=== PATIENT | female | born 1975 ===

== ENCOUNTER 2023-04-25 09:53 | Outpatient (REF) | payer MEDICAID, SELFPAY ==
[2023-04-25 14:46] LABS: MANUAL DIFF FLAG NO
[2023-04-25 14:57] LABS: Basophils Absolute Auto 0.1 X10*3/uL (0.0-0.2); Eosinophils Absolute Auto 0.1 X10*3/uL (0.0-0.4); Eosinophils Percent Auto 1.6 % (0-4); Hematocrit 42.6 % (37.0-47.0); Hemoglobin 13.4 g/dl (12.0-16.0); Imm Gran Abs Auto 0.01 X10*3/uL (0.00-0.03); Imm Gran Pct Auto 0.2 % (0.0-0.4); Lymphocytes Absolute Auto 1.8 X10*3/uL (1.2-4.9); Lymphocytes Percent Auto 35.4 % (20-40); Mean Corpuscular HGB Conc 31.5 g/dl (31.0-35.0); Mean Corpuscular Hemoglobin 29.6 pg (27.0-33.0); Mean Corpuscular Volume 94.2 fL (80.0-98.0); Mean Platelet Volume 11.1 fL (9.4-12.3); Monocytes Absolute Auto 0.4 X10*3/uL (0.1-1.2); Monocytes Percent Auto 8.5 % (2-11); Neutrophils Absolute Auto 2.7 x10*3/uL (2.0-8.3); Neutrophils Percent Auto 53.3 % (45-73); Platelet Count 246 X10*3/uL (160-400); Red Blood Count 4.52 X10*6/uL (4.20-5.50); Red Cell Distribution Width 12.6 % (11.0-16.0)
[2023-04-25 15:01] LABS: Estimated Average Glucose 91 mg/dL; Hemoglobin A1c % 4.8 % (<6.0)
[2023-04-25 15:27] LABS: Alanine Aminotransferase 22 U/L (0-31); Albumin Level 4.1 g/dL (3.5-5.0); Alkaline Phosphatase 51 U/L (39-117); Anion Gap 9 (12-20); Aspartate Amino Transferase 18 U/L (5-31); Bilirubin Total 1.5 mg/dL (0.0-1.0); Blood Urea Nitrogen 10 mg/dL (9-16); Calcium 8.8 mg/dL (8.4-10.2); Carbon Dioxide 29 mmol/L (22-29); Chloride 106 mmol/L (96-108); Cholesterol 182 mg/dL (<200); Estimated Glomerular Filt Rate > 60; Glucose Random 70 mg/dL (60-115); HDL Cholesterol 50 mg/dL (>40); LDL Cholesterol Calculated 115 mg/dL (<100); Potassium 3.7 mmol/L (3.3-5.1); Sodium 140 mmol/L (135-145); TSH reflex Free T4 2.24 uIU/mL (0.32-4.0); Total Protein 7.4 g/dL (6.5-8.0); Triglycerides 87 mg/dL (<150)
== END 2023-04-25 09:54 | disposition home or self-care (01) ==
LOC: HO.CHCLDS 09:53
PROVIDERS: PCP Internal Medicine; Visit Provider Internal Medicine
DX: R03.0 Elevated blood-pressure reading, without diagnosis of hypertension (principal); E03.9 Hypothyroidism, unspecified
CPT/HCPCS: 36415; 80053; 80061; 83036; 84443; 85025

== ENCOUNTER 2023-04-26 15:16 | Emergency (ER) | payer MEDICAID, SELFPAY ==
[2023-04-26 15:20] VITALS: BP 171/106; PULSE 90; RESP 18; TEMP 36.3; O2SAT 98; BMI 28.0
--- NOTE | 2023-04-26 15:20 | ED.GENADULT ---
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 She notes otherwise feeling okay. No hx of HTN no new medications stress or ingestions. Her doctor is aware and just ordered a BP cuff to measure her BP at home MD complaint: HTN Onset (ago): day(s) (2) Location: head Radiation: non-radiation Severity: mild Quality: dull Pain Consistency: intermittent Relieving factors: none Exacerbating factors: none Associated symptoms: other (felt a little short of breath yesterday) Treatments prior to arrival: none Related Data Allergies Allergy/AdvReac Type Severity Reaction Status Date / Time No Known Allergies Allergy Verified 04/26/23 15:26 Review of Systems Review of Systems: Constitutional : No Fever, No Chills, No Fatigue ENT/Mouth : No sore throat, No Rhinorrhea Eyes: No Eye Pain, No Swelling, No Redness Cardiovascular : No Chest Pain, No SOB, No Dyspnea on Exertion Respiratory : No Cough, No Sputum Gastrointestinal : No Nausea, No Vomiting, No Diarrhea, No abdominal Pain Genitourinary : No Dysuria, No Urinary Frequency, No Hematuria, Musculoskeletal : No joint pain, No Myalgias, No Joint Swelling Skin : No Skin Lesions, No rash Neuro : No Weakness, No Numbness, No Dizziness, positive Headache Psych : No Anxiety/Panic, No Depression Heme/Lymph: No Bruising, No Bleeding,No Lymphadenopathy Endocrine : No Polyuria, No Polydipsia All other systems reviewed and are negative PMFSH Past Medical History Attestation statement: The following information was validated with the patient. Source: old records reviewed Onset Date is defined in the Problem List Problems that require an onset date and time if occurred within 24 hrs of arrival to the ED Aortic Dissection and Rupture; Neurologic impairment; Cardiopulmonary Arrest; Endotracheal Intubation; Insertion or Replacement of Mechanical Circulatory Assist Device Medical History HTN (hypertension) Social History Social History Smoked in Last 30 Days: No Use of substances other than those prescribed or required for medical reasons: No Advance Directives: No Advance Directives Information Provided: No Patient : No Physical Exam ED Vital Signs: Vital Signs - 24 hr 04/26/23 15:20 04/26/23 20:07 Temperature 97.4 F 98.3 F Pulse Rate 90 79 Respiratory Rate 18 18 Blood Pressure 171/106 H 133/97 H Pulse Oximetry 98 99 Oxygen Delivery Method Room Air Room Air BMI result Body Mass Index 28.0 Appearance: Alert. Oriented X3. No acute distress. Eyes: Pupils equal, round and reactive to light. ENT: Pharynx normal. Neck: Normal inspection. Neck supple. CVS: Normal heart rate and rhythm. Pulses normal. Respiratory: No respiratory distress. Breath sounds normal. Abdomen: Soft and nontender. Skin: Skin warm and dry. Normal skin color. Normal skin turgor. Extremities: No lower extremity edema. No calf ttp Neuro: Oriented X 3. No motor deficit. No sensory deficit. Course Course Course Narrative: This is an RME: Additional HPI, ROS, PE not included below will be deferred to primary provider. Patient is a 47-year-old female who presents emergency department for evaluation of hypertension and dizziness. She reports 1.5 years with these symptoms since she moved here from [facility], was not previously on any medications. She saw a new doctor 2 days ago, she believes this was a primary care doctor, she was seeing them for her thyroid however she states that she states she was not given any antihypertensive prescription, just a prescription for a blood pressure cuff which she was not able to get from the pharmacy. She was visiting with her cousin today who checked her blood pressure and noted it to be 147/101 which prompted her visit here today. Plan: Labs, EKG, U/A Medical Decision Making Medical Decision Making MDM Narrative: 47 yo female with PMH of thyroid disease here with mild elevations in BP but no signs of end organ disease neuro intact, kidney function EKG and trop normal can continue to check her BP at home as planned and send home with precautions. Differential Diagnosis Differential Diagnoses: The differential diagnosis associated with the presentation includes HTN Admission/Observation Consideration of admission/observation: Escalation of care including admission/observation considered labs and BP stable has good outpatient follow up Lab Data MDM Lab Attestation statement: I reviewed the patient's lab results. 04/26/23 15:51 04/26/23 15:51 Labs: Lab Results 04/26/23 Range/Units 15:51 WBC 5.6 (4.8-10.8) X10*3/uL RBC 4.43 (4.20-5.50) X10*6/uL Hgb 13.2 (12.0-16.0) g/dl Hct 40.9 (37.0-47.0) % MCV 92.3 (80.0-98.0) fL MCH 29.8 (27.0-33.0) pg MCHC 32.3 (31.0-35.0) g/dl RDW 12.3 (11.0-16.0) % Plt Count 248 (160-400) X10*3/uL MPV 10.0 (9.4-12.3) fL Immature Gran % (Auto) 0.0 (0.0-0.4) % Neut % (Auto) 54.2 (45-73) % Lymph % (Auto) 33.9 (20-40) % [place] % (Auto) 7.8 (2-11) % Eos % (Auto) 3.0 (0-4) % Baso % (Auto) 1.1 (0-2) % Lymph # (Auto) 1.9 (1.2-4.9) X10*3/uL [place] # (Auto) 0.4 (0.1-1.2) X10*3/uL Eos # (Auto) 0.2 (0.0-0.4) X10*3/uL Baso # (Auto) 0.1 (0.0-0.2) X10*3/uL Abs Immat Gran (auto) 0.00 (0.00-0.03) X10*3/uL Absolute Neuts (auto) 3.1 (2.0-8.3) x10*3/uL Absolute Nucleated RBC 0.000 (0.0-0.012) X10*3/uL Nucleated RBC % (auto) 0.0 (0.0-0.2) /100WBC Sodium 141 (135-145) mmol/L Potassium 3.4 (3.3-5.1) mmol/L Chloride 103 (96-108) mmol/L Carbon Dioxide 31 H (22-29) mmol/L Anion Gap 10 L (12-20) BUN 12 (9-16) mg/dL Creatinine 0.64 (0.5-1.4) mg/dL Estim Creat Clear Calc 97.0 Estimated GFR > 60 Random Glucose 67 (60-115) mg/dL Calcium 9.8 D (8.4-10.2) mg/dL Total Bilirubin 0.9 (0.0-1.0) mg/dL AST 17 (5-31) U/L ALT 20 (0-31) U/L Alkaline Phosphatase 71 (39-117) U/L Troponin I High Sens < 2.7 (<3.5-17.0) ng/L Total Protein 7.7 (6.5-8.0) g/dL Albumin 4.1 (3.5-5.0) g/dL Independent Interpretation I performed an independent interpretation of an: EKG Interpretation: Rate: 76 Rhythm: NSR [place]: normal Normal P waves. Normal LALI. Normal QRS complex. ST T wave : normal no YEMI qTC: 441 prior studies: no acute ischemia The study has been interpreted contemporaneously by me. . Discharge Plan Discharge Clinical Impression: HTN (hypertension) Qualifiers: Hypertension type: unspecified Qualified Code(s): I10 - Essential (primary) hypertension Patient Disposition: Home, Self-Care Instructions: Hypertension (ED), DASH Eating Plan (ED) Additional Instructions: continue to monitor your blood pressure. if you symptoms worsen and blood pressure remains 150/100 seek medical care. rest and stay hydrated. follow up with your doctor about your thyroid. Contin?e controlando langley presi?n arterial. Si delano s?ntomas empeoran y la presi?n arterial se mantiene en 150/100 busque atenci?n m?dica. Descanse y mant?ngase hidratado. Rama un seguimiento con langley m?dico acerca de langley tiroides. Print Language: Czech
--- NOTE | 2023-04-26 15:26 | ECG_ITS ---
Test Reason : HTN Blood Pressure : / mmHG Vent. Rate : 076 BPM Atrial Rate : 076 BPM P-R Int : 150 ms QRS Dur : 078 ms QT Int : 392 ms P-R-T Axes : 054 035 037 degrees QTc Int : 441 ms Normal sinus rhythm Possible Left atrial enlargement Borderline ECG No previous ECGs available Referred By: Shara Connolly Electronically Signed By:ARA PATEL MD
[2023-04-26 15:55] LABS: MANUAL DIFF FLAG NO
[2023-04-26 15:58] LABS: Basophils Absolute Auto 0.1 X10*3/uL (0.0-0.2); Basophils Percent Auto 1.1 % (0-2); Eosinophils Absolute Auto 0.2 X10*3/uL (0.0-0.4); Hematocrit 40.9 % (37.0-47.0); Hemoglobin 13.2 g/dl (12.0-16.0); Lymphocytes Absolute Auto 1.9 X10*3/uL (1.2-4.9); Lymphocytes Percent Auto 33.9 % (20-40); Mean Corpuscular HGB Conc 32.3 g/dl (31.0-35.0); Mean Corpuscular Hemoglobin 29.8 pg (27.0-33.0); Mean Corpuscular Volume 92.3 fL (80.0-98.0); Monocytes Absolute Auto 0.4 X10*3/uL (0.1-1.2); Monocytes Percent Auto 7.8 % (2-11); Neutrophils Absolute Auto 3.1 x10*3/uL (2.0-8.3); Neutrophils Percent Auto 54.2 % (45-73); Platelet Count 248 X10*3/uL (160-400); Red Blood Count 4.43 X10*6/uL (4.20-5.50); Red Cell Distribution Width 12.3 % (11.0-16.0); White Blood Count 5.6 X10*3/uL (4.8-10.8)
[2023-04-26 16:12] LABS: Alanine Aminotransferase 20 U/L (0-31); Albumin Level 4.1 g/dL (3.5-5.0); Alkaline Phosphatase 71 U/L (39-117); Anion Gap 10 (12-20); Aspartate Amino Transferase 17 U/L (5-31); Bilirubin Total 0.9 mg/dL (0.0-1.0); Blood Urea Nitrogen 12 mg/dL (9-16); Calcium 9.8 mg/dL (8.4-10.2); Carbon Dioxide 31 mmol/L (22-29); Chloride 103 mmol/L (96-108); Estimated Glomerular Filt Rate > 60; Glucose Random 67 mg/dL (60-115); Potassium 3.4 mmol/L (3.3-5.1); Sodium 141 mmol/L (135-145); Total Protein 7.7 g/dL (6.5-8.0)
[2023-04-26 16:24] LABS: Troponin-I High Sensitivity < 2.7 ng/L (<3.5-17.0)
[2023-04-26 20:07] VITALS: BP 133/97; PULSE 79; RESP 18; TEMP 36.8; O2SAT 99
--- NOTE | 2023-04-26 21:37 | PC.NURSE ---
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 pt calm and cooperative. pt ambulatory at discharge. pt provided with discharge packet pt verbalized understanding of discharge plan. pt spouse and child at bedside at discharge
== END 2023-04-26 21:38 | disposition home or self-care (01) ==
PROVIDERS: Nurse Practitioner Family; Emergency Provider Emergency Medicine; PCP Internal Medicine
DX: R51.9 Headache, unspecified (principal); I10 Essential (primary) hypertension; R94.31 Abnormal electrocardiogram [ECG] [EKG]; Z79.899 Other long term (current) drug therapy
CPT/HCPCS: 36415; 80053; 84484; 85025; 93005; 99283; 99284

== ENCOUNTER → 2023-04-26 15:26 | Outpatient (BNV) | payer MEDICAID, SELFPAY | PROVIDERS: Emergency Provider Emergency Medicine; PCP Internal Medicine; Visit Provider Internal Medicine Cardiovascular Disease | DX: I10 Essential (primary) hypertension (principal) | CPT/HCPCS: 93010 ==

== ENCOUNTER 2023-05-20 16:30 | Outpatient (REF) | payer MEDICAID, SELFPAY ==
--- NOTE | ~2023-05-20 | MM_ITS ---
EXAMINATION: MM SCREENING DIGITAL BREAST TOMOSYNTHESIS, BILATERAL CLINICAL INFORMATION: Screening. Asymptomatic. COMPARISON: Mammography: There are no prior mammograms for comparison. This is a baseline mammogram. TECHNIQUE: Digital breast tomosynthesis is performed in both the craniocaudal and mediolateral oblique views along with computer-aided detection (CAD). Synthesized 2D images are generated from the tomosynthesis. FINDINGS: The breasts are heterogeneously dense, which may obscure small masses (ACR BI-RADS breast composition Category c). There are no significant masses, abnormal calcifications, or other abnormalities. MM/MM tomosynthesis screening BI IMPRESSION: No mammographic evidence of malignancy. ASSESSMENT: BI-RADS BI-RADS 1 - Negative RECOMMENDATION: Routine annual mammography screening. 1 year F/U This examination should not preclude the clinical evaluation of a suspicious palpable abnormality. This patient's information was entered into a reminder system with a target due date for their next mammogram.
== END 2023-05-20 16:31 | disposition home or self-care (01) ==
LOC: HO.MAMMO 16:30
PROVIDERS: PCP Internal Medicine; Visit Provider Internal Medicine
DX: Z12.31 Encounter for screening mammogram for malignant neoplasm of breast (principal)
CPT/HCPCS: 77063; 77067

== ENCOUNTER → 2023-05-20 16:30 | Outpatient (BNV) | payer MEDICAID, SELFPAY | PROVIDERS: PCP Internal Medicine; Visit Provider Radiology Diagnostic Radiology | DX: Z12.31 Encounter for screening mammogram for malignant neoplasm of breast (principal) | CPT/HCPCS: 77063; 77067 ==

== ENCOUNTER 2023-08-20 14:50 | Outpatient (REF) | payer MEDICAID, OTHER, SELFPAY ==
[2023-08-23 00:04] LABS: C. trachomatis RNA TMA NOT DETECTED (NOT DETECTED); N. gonorrhoeae RNA TMA NOT DETECTED (NOT DETECTED); Trichomonas (NAAT) NOT DETECTED (NOT DETECTED)
[2023-08-23 01:54] LABS: HPV mRNA E6/E7 rflx Not Detected (Not Detected)
== END 2023-08-20 14:51 | disposition home or self-care (01) ==
LOC: HO.HHCLNP 14:50
PROVIDERS: Visit Provider Advanced Practice Midwife
DX: Z12.4 Encounter for screening for malignant neoplasm of cervix (principal); Z11.51 Encounter for screening for human papillomavirus (HPV); Z11.3 Encounter for screening for infections with a predominantly sexual mode of transmission
CPT/HCPCS: 36415; 87491; 87591; 87624; 87661; 88142

== ENCOUNTER 2024-01-18 12:31 | Emergency (ER) | payer MEDICAID, OTHER, SELFPAY ==
--- NOTE | ~2024-01-18 | XR_ITS ---
EXAMINATION: XR HAND, LEFT CLINICAL INFORMATION: Index and middle finger pain COMPARISON: None available. TECHNIQUE: PA, lateral, and oblique views of the left hand. FINDINGS: Overlying ring of the third digit limits evaluation. No acute fracture. There is soft tissue swelling of the third digit. No fracture. Alignment is anatomic. Joint spaces are maintained. No erosions or soft tissue calcifications. XR/XR hand LT min 3V IMPRESSION: Soft tissue swelling of the third digit. Electronically signed by: Ximena Duenas MD 01/18/2024 02:05 PM EDT RP
[2024-01-18 12:33] VITALS: BP 143/94; PULSE 89; RESP 18; TEMP 36.2; O2SAT 98; BMI 24.4
--- NOTE | 2024-01-18 12:34 | ED.GENADULT ---
HPI - General Adult General Chief complaint: Wound/Laceration Stated complaint: Finger lac Time Seen by Provider: 01/18/24 12:55 Source: patient, family and lead medical technologist Mode of arrival: ambulatory Limitations: language barrier History of Present Illness ED Provider: Mignon Garcia APRN HPI narrative: 48 yo female right hand dominant here with complaints of laceration to left 2nd/3rd digit from electric window trimmer. Tetanus status unknown. No associated weakness, numbness, tingling of the extremity Related Data Previous Rx's ?Medication ?Instructions ?Recorded acetaminophen 325 mg tablet 650 mg (2 x 325 mg) PO Q4H PRN 01/18/24 (Tylenol) pain #30 tabs cephalexin 500 mg capsule 500 mg PO BID #14 caps 01/18/24 ibuprofen 600 mg tablet 600 mg PO Q6H PRN pain #30 tabs 01/18/24 Allergies Allergy/AdvReac Type Severity Reaction Status Date / Time No Known Allergies Allergy Verified 01/18/24 12:36 Review of Systems Review of Systems: Yes all other systems are reviewed and are negative Constitutional: Constitutional: Reports no additional constitutional complaints, Denies body ache(s), Denies chills, Denies fever(s), Denies headache(s) and Denies weakness Eyes: Eyes: Reports no additional eye complaints and Denies change in vision ENT: Reports system reviewed and no additional complaints, except as documented, Denies dizziness, Denies headache(s), Denies nasal congestion, Denies nasal discharge and Denies neck pain Cardiovascular: Cardiovascular: Reports no additional cardiovascular complaints, Denies chest pain, Denies leg edema and Denies dyspnea Respiratory: Respiratory: Reports no additional respiratory complaints, Denies cough and Denies dyspnea Gastrointestinal: Gastrointestinal: Reports no additional gastrointestinal complaints, Denies abdominal pain, Denies diarrhea, Denies nausea and Denies vomiting Genitourinary: Genitourinary: Reports no additional female genitourinary complaints and Denies urinary incontinence Musculoskeletal: Musculoskeletal: Reports no additional musculoskeletal complaints, Denies back pain, Denies arthralgias, Denies joint swelling, Denies neck pain, Denies numbness and Denies tingling Integumentary/Breasts: Skin/Breast: Reports system reviewed and no additional complaints, except as docu, Denies rash and Reports wounds Neurologic: Reports system reviewed and no additional complaints, except as documented, Denies Abnormal speech present, Denies dizziness, Denies headache(s), Denies numbness, Denies tingling and Denies weakness PMFSH Past Medical History Attestation statement: The following information was validated with the patient. Source: old records reviewed and nursing notes reviewed Medical History HTN (hypertension) Social History Social History Advance Directives: No Do you have a plan to hurt others: No Plan Physical Exam ED Vital Signs: Vital Signs - 24 hr 01/18/24 12:33 Temperature 97.2 F Pulse Rate 89 Respiratory Rate 18 Blood Pressure 143/94 H Pulse Oximetry 98 Oxygen Delivery Method Room Air BMI result Body Mass Index 24.4 Const General: cooperative, healthy appearing, comfortable and no acute distress Orientation/consciousness: patient oriented x3 Limitations: no limitations HENMT Head: Yes normal to inspection Ears: hearing grossly normal bilaterally General nose exam: Normal external nose present Face and sinus: Yes normal facial exam Mouth: Normal oral and palatal mucosa present Throat: Yes posterior oropharynx normal Eyes General: appearance normal, both eyes and all related structures Pupils: Equal, round and reactive pupils present Neck Neck: Yes normal visual inspection Chest Chest palpation & inspection: normal inspection of the chest Resp Effort & Inspection: normal respiratory effort Auscultation: clear to auscultation bilaterally Cardio Rate: regular rate Rhythm: regular rhythm Peripheral pulses: Peripheral pulses 2+ throughout GI Inspection: Yes normal to inspection Palpation (GI): Soft to palpation and nontender Auscultation: normal bowel sounds Back/Spine/Pelvis Thoracic/Lumbar Spine: thoracic and lumbar spine normal to inspection Skin General skin exam: no rashes or lesions noted Neuro General: patient oriented x3, no focal motor deficits and normal sensation to monofilament Cranial nerves: Yes Equal, round and reactive pupils present Cognition (Neuro): normal cognition Speech: No Abnormal speech present Gait exam (Neuro): Normal gait present Motor exam (neuro): 5/5 motor strength present throughout Extrem Other: Over the left hand over the 3rd digit on the distal volar aspect there is a 1 cm laceration. Full active and passive range of motion. Normal distal sensation. Bleeding is controlled Over the left hand over the 2nd digit on the distal volar aspect there is a 2 cm laceration. Full active and passive range of motion. Normal distal sensation. Bleeding is controlled General: Yes normal to inspection Course Course Course Narrative: RME performed by Anna Rivera PA-C. Patient is a 48 year old assigned female at presenting to the emergency department with a left index and middle finger injury. Patient states she was using electric hedge trimmers when she got cut. Detailed physical exam and review of systems are deferred to the video tape duplicator. Imaging ordered. Patient placed back in the waiting room pending room availability and results. Medications Administered Discontinued Medications Generic Name Dose Route Start Last Admin Trade Name Freq PRN Reason Stop Dose Admin Diphtheria/Tetanus/Acell Pertussis 0.5 ml 01/18/24 12:39 01/18/24 13:12 Diphth,Pertus(Acell),Tet Adult 0.5 Ml Syringe IM 01/18/24 12:40 0.5 ml .ONCE ONE Administration Lidocaine HCl 2 ml 01/18/24 13:19 01/18/24 13:40 Lidocaine Hcl 1 % Mpf 2 Ml Vial INFILTRATI 01/18/24 13:20 2 ml ONCE ONE Administration Lidocaine HCl 2 ml 01/18/24 13:19 01/18/24 13:40 Lidocaine Hcl 1 % Mpf 2 Ml Vial INFILTRATI 01/18/24 13:20 2 ml ONCE ONE Administration Procedures Laceration Laceration 1: Site: hand (2nd digit ) Side (If applicable): left Size (cm): 2 Description: irregular Pre-repair: wound explored and irrigated extensively (1L NS) Skin layer closed with: vicryl Size (cm): 5-0 Number of sutures: 5 Technique: simple, interrupted Laceration 2: Site: hand (3rd digit ) Side (If applicable): left Size (cm): 1 Description: irregular Depth: simple, single layer Pre-repair: wound explored and irrigated extensively (1L NS) Skin layer closed with: vicryl Size (cm): 5-0 Number of sutures: 3 Technique: simple, interrupted Nerve Block Nerve Block 1: Time out performed: Yes Local Anesthetic: lidocaine 1% Amount of anesthesia used (mL): 6 Side: left Nerve Blocks: digital (2nd/3rd digit ) Procedure Successful: Yes Patient Tolerated Procedure: well Complications: none Medical Decision Making Medical Decision Making MDM Narrative: 48 yo female right hand dominant here with complaints of laceration to left 2nd/3rd digit from electric window trimmer. Tetanus status unknown. No associated weakness, numbness, tingling of the extremity See PE for exam findings WIll need x-ray, tetanus updated, digital block and wound repair Differential Diagnosis Differential Diagnoses: The differential diagnosis associated with the presentation includes Laceration, Fracture, avulsion, retained FB Low suspicion for tendon injury, dislocation, vascular injury Admission/Observation Consideration of admission/observation: Escalation of care including admission/observation considered Low suspicion for tendon injury, dislocation, vascular injury requiring advanced imaging, urgent orthopedic consultation Independent Interpretation I performed an independent interpretation of an: Plain X-Ray Interpretation: I independently viewed the x-ray and agree with the radiology report Radiology Impression Discussion of test interpretation with radiology: I have reviewed the radiologist's reading. Radiologist Impression: [address] [address] XRay Report Signed Patient: Alicia Workman MR#: [id number] : 1975 Acct:[id number] Age/Sex: 48 / F ADM Date: 01/18/24 Loc: HO.ED Attending Dr: Ordering Physician: Anna Rivera Date of Service: 01/18/24 Procedure(s): XR hand LT min 3V Accession Number(s): [id number] cc: Kan Tijerina MD; Anna Rivera~ EXAMINATION: XR HAND, LEFT CLINICAL INFORMATION: Index and middle finger pain COMPARISON: None available. TECHNIQUE: PA, lateral, and oblique views of the left hand. FINDINGS: Overlying ring of the third digit limits evaluation. No acute fracture. There is soft tissue swelling of the third digit. No fracture. Alignment is anatomic. Joint spaces are maintained. No erosions or soft tissue calcifications. XR/XR hand LT min 3V IMPRESSION: Soft tissue swelling of the third digit. Independent Historian Clinical information obtained from an independent historian. History obtained from or confirmed by: Spouse Tests considered The following testing was considered but not selected: Low suspicion for tendon injury, dislocation, vascular injury requiring advanced imaging Prescription Management I considered prescription management with: Antibiotic Discharge Plan Discharge Clinical Impression: Laceration Patient Disposition: Home, Self-Care Instructions: Finger Laceration (ED) Additional Instructions: Sutures out in 7-10 days Keep the wound clean, covered and dry Motrin or tylenol for pain as needed Return for signs of infection (redness, swelling, drainage) Leave the dressing in place, after 24 hrs you may remove it. Wash it with soap and water, pat dry and re-apply a dressing Prescriptions: New cephalexin 500 mg capsule 500 mg PO BID Qty: 14 0RF ibuprofen 600 mg tablet 600 mg PO Q6H PRN (Reason: pain) Qty: 30 0RF acetaminophen [Tylenol] 325 mg tablet 650 mg PO Q4H PRN (Reason: pain) Qty: 30 0RF Referrals: Kan Tijerina MD [Primary Care Provider] - 1 week Print Language: Italian
[2024-01-18] MEDS: Diphth,Pertus(ACell),Tet Adult 0.5 ML SYRINGE IM (13:12)
--- NOTE | 2024-01-18 13:15 | PC.NURSE ---
pt medicated with updated tetanus, pt has c/o 5/10 pain. provider at bedside
[2024-01-18] MEDS: Lidocaine HCl 1 % MPF 2 ML VIAL INFILTRATI ×4 (13:40→14:21)
[2024-01-18 14:25] VITALS: BP 131/78; PULSE 82; RESP 18; TEMP 36.7; O2SAT 98
== END 2024-01-18 14:26 | disposition home or self-care (01) ==
PROVIDERS: Emergency Provider Internal Medicine; PCP Internal Medicine
DX: S61.211A Laceration without foreign body of left index finger without damage to nail, initial encounter (principal); S61.213A Laceration without foreign body of left middle finger without damage to nail, initial encounter; W29.3XXA Contact with powered garden and outdoor hand tools and machinery, initial encounter; Y93.H2 Activity, gardening and landscaping; Y92.017 Garden or yard in single-family (private) house as the place of occurrence of the external cause; Y99.9 Unspecified external cause status; Z23 Encounter for immunization
CPT/HCPCS: 12002; 73130; 90471; 90715; 99282; 99284; J2003

== ENCOUNTER 2024-05-13 16:33 | Outpatient (REF) | payer MEDICAID, OTHER, SELFPAY ==
--- NOTE | ~2024-05-13 | US_ITS ---
CLINICAL HISTORY: fibroids, 6 month f u US pelvis transabdominal and transvaginal with Doppler Comparison: None Findings: Transabdominal scanning performed for overall anatomy. Transvaginal scanning performed for additional detail. Uterus is 13 cm length. Multiple uterine fibroids: 4.8 x 4.5 x 4.4 cm on the right, 3.2 x 2.1 x 2.7 cm on the right and 2.7 x 2.5 x 2.5 cm posteriorly No endometrial lesion, 8.0 mm thickness. Right ovary 3.4 x 1.5 x 2 cm. Left ovary is not seen. Normal color Doppler with arterial/venous spectral tracing of right ovary. No free fluid. IMPRESSION: Multiple uterine fibroids. This document has been electronically signed by: Amaya Hubbard MD on 05/13/2024 17:21:49
== END 2024-05-13 16:34 | disposition home or self-care (01) ==
LOC: HO.US 16:33
PROVIDERS: PCP Internal Medicine; Visit Provider Advanced Practice Midwife
DX: D21.9 Benign neoplasm of connective and other soft tissue, unspecified (principal)
CPT/HCPCS: 76830; 76856

== ENCOUNTER → 2024-05-13 16:44 | Outpatient (BNV) | payer SELFPAY | PROVIDERS: PCP Internal Medicine; Visit Provider Nuclear Medicine | DX: D25.9 Leiomyoma of uterus, unspecified (principal) | CPT/HCPCS: 76830; 76856 ==

== ENCOUNTER 2024-08-19 09:49 | Outpatient (REF) | payer SELFPAY ==
--- OUTSIDE RECORDS SUMMARY | 2024-08-19 10:45 | XMS_ITS | Encounter Summary ---
Author Organization [employer] Address [address] [place] [address] Care Team Providers Care Snuff Grinder And Screener Name Role Phone Kan Tijerina MD Primary Care Prov ider Reason for Visit * Reason Onset Date Comments Appointment Request 11/05/2023 Encounter Details Date Type Department Care Team ([facility] st Contact Info) Description 11/05/2023 Telephone [facility] MEDICINE [address] [place] [address] Kan Tijerina MD [address] [place] [address] Appointment Request Social History Tobacco Use Types Packs/Day Years Used Date Smoking Tobacco: Never Passive Smoke Exposure: Never Smokeless Tobacco: Never Alcohol Use Standard Drinks/Week Comments Never 0 (1 standard drink = 0.6 oz pur e alcohol) Depression Answer Date Recorded Patient Health Questionnaire-9 Score 0 05/27/2023 Patient Health Questionnaire-9 Score 0 05/27/2023 Last PHQ-9: Questionnaire Data Not on file 0 05/27/2023 Housing Stability Answer Date Recorded What is your housing situation today? I have [employer] 05/20/[address] you li ve. Do you have problems with any of the following? None of the above 05/20/2023 Food Insecurity Answer Date Recorded Within the past 12 months, y ou worried that your food would run out before you got money to buy more: Never True 05/20/2023 Within the past 12 months,th e food you bought just didn't last and you didn't have enough money to get more: Never True 08/2023 Transportation Answer Date Recorded In the past 12 months, has l ack of transportation kept you from medical appts, meetings, work or from getting things needed for daily living? No 05/27/2023 Utilities Answer Date Recorded In the past 12 months, has t he electric, gas, oil or water company threatened to shut off services in your home? 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 documented in this encounter Plan of Treatment Upcoming Encounters Date Type Department Care Team (Late st Contact Info) Description 09/08/2024 2:30 PM EDT Telemedicine [facility] [address] [place] [address] Kan Tijerina MD [address] [place] [address] documented as of this encounter Visit Diagnoses Not on filedocumented in this encounter Additional Health Concerns Assessment Noted Time PHQ-9 Depression Total Score: 0 05/27/19 9:56 AM EST documented as of this encounter Care Teams Snuff Grinder And Screener Relationship Specialty Start Date End Date Kan Tijerina MD [address] [place] [address] PCP - General Internal Medicine 05/27/23 documented as of this encounter
--- OUTSIDE RECORDS SUMMARY | 2024-08-19 10:45 | XMS_ITS | Encounter Summary ---
Author Organization [employer] Address [address] [place] [address] Care Team Providers Care Auxiliary Power Equipment Operator Name Role Phone Kan Tijerina MD Primary Care Prov ider Encounter Details Date Type Department Care Team (Latest Contact Info) Description 08/19/2024 Travel Social History Tobacco Use Types Packs/Day Years Used Date Smoking Tobacco: Never Passive Smoke Exposure: Never Smokeless Tobacco: Never Alcohol Use Standard Drinks/Week Comments Never 0 (1 standard drink = 0.6 oz pur e alcohol) Depression Answer Date Recorded Patient Health Questionnaire-9 Score 3 08/04/2024 Patient Health Questionnaire-9 Score 3 08/04/2024 Last PHQ-9: Questionnaire Data Not on file 0 08/04/2024 Housing Stability Answer Date Recorded What is your housing situation today? I have [employer] 07/24/[address] you li ve. Do you have problems with any of the following? None of the above 07/24/2024 Food Insecurity Answer Date Recorded Within the past 12 months, y ou worried that your food would run out before you got money to buy more: Never True 07/24/2024 Within the past 12 months,th e food you bought just didn't last and you didn't have enough money to get more: Never True 02/2025 Transportation Answer Date Recorded In the past 12 months, has l ack of transportation kept you from medical appts, meetings, work or from getting things needed for daily living? Yes, it has kept me from medical appointments or getting medications. 07/24/2024 Utilities Answer Date Recorded In the past 12 months, has t he electric, gas, oil or water company threatened to shut off services in your home? No 07/24/2024 Depression Answer Date Recorded Patient Health Questionnaire-2 Score 1 08/04/2024 Internet Access Answer Date Recorded Internet Access Q1 Yes 07/24/2024 Internet Access Q2 Not on file 07/24/2024 Comments No Sex and Gender Information Value Date Recorded Sex Assigned at Female 04/24/2023 5:19 PM EST Legal Sex Female 10:47 AM EST Gender Identity Female 04/24/2023 5:19 PM EST Sexual Orientation Straight 04/24/2023 5: 19 PM EST documented as of this encounter Plan of Treatment Upcoming Encounters Date Type Department Care Team (Late st Contact Info) Description 09/08/2024 2:30 PM EDT Telemedicine [facility] [address] [place] [address] Kan Tijerina MD [address] [place] [address] documented as of this encounter Visit Diagnoses Not on filedocumented in this encounter Additional Health Concerns Assessment Noted Time PHQ-9 Depression Total Score: 3 08/05/19 25 2:01 PM EDT documented as of this encounter Care Teams Auxiliary Power Equipment Operator Relationship Specialty Start Date End Date Kan Tijerina MD [address] [place] [address] PCP - General Internal Medicine 05/27/23 documented as of this encounter
--- OUTSIDE RECORDS SUMMARY | 2024-08-19 10:45 | XMS_ITS | Clinical Summary ---
Author Organization [employer] Address [address] [place] [address] Care Team Providers Care Database Reporting Consultant Name Role Phone Kan Tijerina MD Primary Care Prov ider Allergies No known active allergies Medications Blood Pressure Monitor kitIndications:El evated BP without diagnosis of hypertension Use to monitor blood pressure 1 kit 4 Active ulipristal (Olga) 30 mg tablet Take one tablet by mouth up to five days after sex. Do not use more than once per menstrual cycle. If repeat dose is needed in same cycle, please contact prescriber. 1 tablet 11 4 Active mometasone (Elocon) 0.1 % ointment Apply topically 2 times daily. Apply twice daily to area under breasts 45 g 1 4 11/20/19 25 Active hydroquinone 4 % cream Apply topically 2 times daily. Apply to affected area of face twice daily. 30 g 1 4 11/20/19 25 Active Active Problems Problem Noted Date Diagnosed Date Intramural, submucous, and subserous leiomyoma o f uterus 01/28/2024 Assessment & Plan (01/28/2024 10:44 AM EDT): Will refer to ob-snowboard designer, refers having mild pain and pressure, no menorrhagia reported Primary hypertension 05/28/2023 Assessment & Plan (10/30/2023 12:13 PM EDT): Blood pressure has remained stable, below 140/90, she is exercising, continue low sodium diet and weight loss Assessment & Plan (07/24/2023 7:48 PM EDT): Controlled, off medications, continue low sodium diet and exercise as tolerated Assessment & Plan (05/28/2023 12:27 PM EST): Patient with elevated blood pressure results, she prefers to follow diet reccomendations, will follow up in 1 month with bp log and will decide if bp control medication will be started Screening for colon cancer 04/24/2023 Assessment & Plan (04/24/2023 7:25 PM EST): Will refer to Gi for screening colon cancer Screening for cervical cancer 04/24/2023 Assessment & Plan (04/24/2023 7:26 PM EST): Patient prefers a female provide, will place refera Encounter for screening mamm ogram for malignant neoplasm of breast 04/24/2023 Assessment & Plan (04/24/2023 7:26 PM EST): Will order screening mammogram Elevated BP without diagnosis of hypertension Assessment & Plan (08/04/2024 8:26 PM EDT): Elevated bp reading, at home has remained stable, told to keep a daily bp log, keep low sodium diet and exercise as tolerated, follow up in 1 month Assessment & Plan (01/28/2024 10:33 AM EDT): Controlled, continue low sodium diet, exercise as tolerated, weigth loss encouraged, keep bp log, follow up in 6 months Assessment & Plan (04/24/2023 7:36 PM EST): Will provide bp kit, encouraged low sodium diet and exercise as tolerated, follow up in 1 month Acquired hypothyroidism 04/24/2023 Assessment & Plan (10/30/2023 12:13 PM EDT): Will order new labs for guidance, she is clinically euthyroid Assessment & Plan (05/28/2023 12:28 PM EST): Has been off treatment for over 5 months, tsh was within normal limits, no oral replacement needed, will monitor Assessment & Plan (04/24/2023 7:40 PM EST): Patient has been off levothyroxine for over 6 months, she used to be taking 50mcg during the weekday and 88mcg on weekends, will order new labs for guidance of therapy Encounters Date Type Department Care Team Description 08/19/2024 9:00 AM EDT Procedure Visit [facility] [address] [place] [id number] Eliana Baum CNM 08/19/2024 Travel 08/18/[address] [address] Eliana Baum CNM CHART PREP 08/04/2024 1:45 PM EDT Office Visit [facility] [address] [place] [address] Kan Tijerina MD Acquired hypothyroidism (Primary Dx); Elevated BP without diagnosis of hypertension 08/04/2024 Travel 07/24/2024 Patient Outreach [address] [address] Ketty Deshpande Pre-visit Planning (SDOH screening positive and Tobacco screening negative) 06/17/2024 Travel from Last 3 Months Immunizations Name Administration Dates Next Due Hep B, adult 07/24/2023 Influenza injectable quadrivalent preservative f ree 07/24/2023 Tdap 07/24/2023 Family History Medical History Relation Name Comments Alzheimer's disease Father Dementia Mother Hypertension Mother Stomach cancer Mother's Sister Relation Name Status Comments Father Mother Mother's Sister Social History Tobacco Use Types Packs/Day Years Used Date Smoking Tobacco: Never Passive Smoke Exposure: Never Smokeless Tobacco: Never Tobacco Cessation:Counseling Given: Not Answered Alcohol Use Standard Drinks/Week Comments Never 0 [...] Orientation Straight 04/24/2023 5: 19 PM EST Last Filed Vital Signs Vital Sign Reading Time Taken Comments Blood Pressure 156/99 08/19/2024 9:11 AM EDT Pulse 84 08/04/2024 2:00 PM EDT Temperature 36.2 ??C (97.2 ??F) 08/19/2024 9:11 AM ED T Respiratory Rate 16 08/19/2024 9:11 AM EDT Oxygen Saturation 98% 08/04/2024 2:00 PM EDT Inhaled Oxygen Concentration - - Weight 61.7 kg (136 lb) 08/19/2024 9:11 AM EDT Height 157.5 cm (5' 2 ) 08/19/2024 9:11 AM EDT Body Mass Index 24.87 08/19/2024 9:11 AM EDT Plan of Treatment Upcoming Encounters Date Type Department Care Team (Late st Contact Info) Description 09/08/2024 2:30 PM EDT Telemedicine [facility] [address] [place] [address] Kan Tijerina MD [address] [place] [address] Health Maintenance Due Date Last Done Comments CT Colonography 1975 Colonoscopy 1975 Colorectal Cancer Screening 1975 FIT DNA/Cologuard 1975 FIT 1975 FOBT 1975 HIV Screening 1975 Sigmoidoscopy 1975 Hepatitis C Screening 1994 Hepatitis B Vaccines (2 of 3 - 19+ 3-dose series) 08/21/2023 07/24/2023 COVID-19 Vaccine (1 - 2023-2 5 season) 2023 Influenza Vaccine (#1) 2023 07/24/2023 Family Planning (PISQ) 08/19/2024 08/20/2023 Mammogram 05/20/2025 05/20/2023 SDOH Screening 07/24/2025 07/24/2024 Alcohol/Substance Use Screening 08/04/2025 08/04/2024 Depression Screening 08/04/2025 08/04/2024, 08/04/2024 Tobacco Screening 08/19/2025 08/19/2024 Zoster Vaccines (1 of 2) 2026 Lipid Panel 04/25/2028 04/25/2023 Cervical Cancer Screening 08/19/2028 HPV/Cotest 08/19/2028 08/21/2023 Pap Smear 08/19/2028 08/20/2023, 08/20/2023 DTaP/Tdap/Td Vaccines (3 - T d or Tdap) 01/17/2034 01/18/2024, 07/24/2023 RSV Patients and Patients Aged 60 years or older (1 - 1-dose 75+ series) 10/28/2051 HIB Vaccines Aged Out No longer eligi ble based on patient's age to complete this topic HPV Vaccines Aged Out No longer eligi ble based on patient's age to complete this topic Hepatitis A Vaccines Aged Out No long er eligible based on patient's age to complete this topic IPV Vaccines Aged Out No longer eligi ble based on patient's age to complete this topic Meningococcal Vaccine Aged Out No kailey ventura eligible based on patient's age to complete this topic Pneumococcal Vaccine: Pediatrics (0 to 5 Years) and At-Risk Patients (6 to 49) Years) Aged Out No longer eligible b ased on patient's age to complete this topic RSV under 20 months Aged Out No longe r eligible based on patient's age to complete this topic Rotavirus Vaccines Aged Out No longer eligible based on patient's age to complete this topic Procedures Procedure Name Priority Date/Time Associated Diagnosis Comments HPV MRNA E6/E7 REFLEX TO HPV 16, 18/45 Routine 08/21/2023 8:20 AM EDT IMAGE-GUIDED PAP W/AGE BASED SCR,W/CT/NG/TRICH Routine 08/20/2023 9:33 AM EDT Cervical cancer screening Encntr screen for infections w sexl mode of transmiss BI MAMMOGRAM SCREENING TOMOSYNTHESIS BILATERAL Routine 05/20/2023 4:47 PM EST LIPID PANEL, STANDARD Routine 04/25/2023 10:03 AM EST Elevated BP without diagnosis of hypertension from Last 3 Months or Most Recently Relevant to Health Maintenance Results * HPV mRNA E6/E7 w/Reflex to HPV Genotypes 16, 18/45 (08/21/2023 8:20 AM EDT) HPV nRNA E6/E7 Not Detected Not Detected [facility] Comment:Methodology: Transcr iption-Mediated AmplificationThis assay detects E6/E7 viral messenger RNA (mRNA) from 14high-risk HPV types (16,18,31,33,35,39,45,51,52,56,58,59,66,68).Cervical sources are required for HPV testing.If a vaginal source from a patient who has had atotal hysterectomy with removal of cervix wassubmitted, please contact the testing laboratoryfor alternative testing options.For additional information, please refer tohttp://education.[employer]BDSoft/faq/NHG996d0(This link if provided for information/educational purposes only.)THIS TEST WAS PERFORMED AT:[facility] [place] [phone] ARAMBULA MD HPV mRNA E6/E7 TNP [facility] HPV 16 RNA TNP [facility] HPV 18/45 RNA TNP [facility] 08/21/2023 8:20 AM EDT 08/21/2023 8:20 AM EDT Eliana Baum [facility] LAB CYTOLOGY ORDERABLES F inal Result [facility] [address] [place] [address] [phone] * Pap with NG,CT,Trich (08/20/2023 9:33 AM EDT) Trichomonas (NAAT) NOT DETECTED NOT DETECTED [facility] Comment:The analytical perfo rmance characteristics of thisassay have been determined by [employer]. Themodifications have not been cleared or approved bythe FDA. This assay has been validated pursuant to theCLIA regulations and is used for clinical purposes.For additional information, please refer tohttp://[employer].EBDSoft/faq/Trichomonastma(This link is being provided for information/educational purposes only.)THIS TEST WAS PERFORMED AT:[facility] [place] [phone] ARAMBULA MD CTNG Ref Lab NOT DETECTED NOT DETECTED [facility] NG Ref Lab NOT DETECTED NOT DETECTED [facility] Pap Vial Vaginal structure / Unknown 08/20/2023 9:33 AM EDT 08/21/2023 11:25 AM EDT Narrative [facility] - 08/23/2023 12:04 AM EDT Was previous PAP abnormal? NoClinical Information: NoneCollection Date: [id number]: [id number] by: ALEXSANDER Almanza: Vagina us Eliana Baum CNM LAB CYTOLOGY ORDERABLES F inal Result [facility] [address] [place] [address] [phone] * BI Mammogram Screening Tomosynthesis Bilateral (05/20/2023 4:47 PM EST) Anatomical Region Laterality Modality Breast Bilateral Mammography 05/20/2023 4:47 PM EST Narrative 06/13/2023 9:53 PM EST ? [facility] ? [address] ?[place] [address] ? Mammography Report ? Signed ? Patient: Alicia Workman ?MR#: ?? [id number] ? : 1975 ?Acct:[id number] ? Age/Sex: 47 / F ?ADM Date: 05/20/23 ? Loc: HO.MAMMO ? Attending Dr: Kan Mathew MD ? Ordering Physician: Kan Tijerina MD ?Res ?? ults: 1Negative ? Date of Service: 05/20/23 ?Follow Up: 1 Year From Orig ?? inal Mammogram ? Procedure(s): MM tomosynthesis screening BI ?? Accession Number(s): [id number] ? cc: Kan Tijerina MD ? EXAMINATION: ?? MM SCREENING DIGITAL BREAST TOMOSYNTHESIS, BILATERAL ? CLINICAL INFORMATION: ? Screening. Asymptomatic. ? COMPARISON: ?? Mammography: There are no prior mammograms for comparison. This is a ?? baseline mammogram. ? TECHNIQUE: ?? Digital breast tomosynthesis is performed in both the craniocaudal and ?? mediolateral oblique views along with computer-aided detection (CAD). ?? Synthesized 2D images are generated from the tomosynthesis. ? FINDINGS: ?? The breasts are heterogeneously dense, which may obscure small masses ?? (ACR BI-RADS breast composition Category c). ? There are no significant masses, abnormal calcifications, or other ?? abnormalities. ? MM/MM tomosynthesis screening BI ?? IMPRESSION: ?? No mammographic evidence of malignancy. ? ASSESSMENT: ? BI-RADS BI-RADS 1 - Negative ? RECOMMENDATION: ?? Routine annual mammography screening. ? 1 year F/U ? This examination should not preclude the clinical evaluation of a ?? suspicious palpable abnormality. ? This patient's information was entered into a reminder system with a ?? target due date for their next mammogram. ? Dictated By: ?Yomaira Elaine MD ? Signed By: ?<Electronically signed by Yomaira Elaine MD in OV> ? 06/13/232148 ? DD/ 46 ? TD/TT: ? Mash Filter Operator: ? Procedure Note Josselyn, Image - 06/13/2023 [facility] [address] [place] [address] Dr. [place], [place] [address] Mammography Report Signed Patient: Shaileshcee MathewAlicia [facility]#: [id number] : 1975Acct:[id number] Age/Sex: 47 / FADM Date: 05/20/23 Loc: MAMMO Attending Dr: Kan Mathew MD Ordering Physician: Kan Tijerina ults: 1Negative Date of Service: 05/20/23Follow Up: 1 Year From Orig inal Mammogram Procedure(s): MM tomosynthesis screening BI Accession Number(s): [id number] cc: Kan Tijerina MD EXAMINATION: MM SCREENING DIGITAL BREAST TOMOSYNTHESIS, BILATERAL CLINICAL INFORMATION: Screening. Asymptomatic. COMPARISON: Mammography: There are no prior mammograms for comparison. This is a baseline mammogram. TECHNIQUE: Digital breast tomosynthesis is performed in both the craniocaudal and mediolateral oblique views along with computer-aided detection (CAD). Synthesized 2D images are generated from the tomosynthesis. FINDINGS: The breasts are heterogeneously dense, which may obscure small masses (ACR BI-RADS breast composition Category c). There are no significant masses, abnormal calcifications, or other abnormalities. MM/MM tomosynthesis screening BI IMPRESSION: No mammographic evidence of malignancy. ASSESSMENT: BI-RADS BI-RADS 1 - Negative RECOMMENDATION: Routine annual mammography screening. 1 year F/U This examination should not preclude the clinical evaluation of a suspicious palpable abnormality. This patient's information was entered into a reminder system with a target due date for their next mammogram. Dictated By: Yomaira Elaine MD Signed By: <Electronically signed by Yomaira Elaine MD in OV> 06/13/232148 DD/ 46 TD/TT: Mash Filter Operator: Kan Mathew MD IM BI PROCEDURES Final Result * (ABNORMAL) Lipid Panel, Standard (04/25/2023 10:03 AM EST) Triglycerides 87 <150 mg/dL [facility] Comment:Desirable Triglyceri de: less than 150 mg/dLBorderline High Triglyceride 150-199 mg/dLHigh Triglyceride: 200-499 mg/dLVery High Triglyceride: greater than or equal to 5OO mg/dL Cholesterol 182 <200 mg/dL [facility] Comment:Desirable Cholestero l: less than 200 mg/dLBorderline High Cholesterol: 200-239 mg/dLHigh Cholesterol: greater than 239 mg/dL LDL Cholesterol Calculated 115(H) <100 mg/dL [facility] Comment:Desirable LDL: less than 100 mg/dLNear Optimal/Above Optimal LDL: 110- 129 mg/dLBorderline High LDL: 130-159 mg/dLHigh LDL: 160-189 mg/dLVery High LDL: greater than or equal to 190 mg/dL HDL Cholesterol 50 >40 mg/dL [facility] Comment:Desirable HDL: great er than 40 mg/dL Note: This HDL assay may give artificially low results in patients with liver disease. Blood Venous blood specimen / Unknown 04/25/2023 10:03 AM EST 04/25/2023 2:43 PM EST Kan Mathew MD LAB BLOOD ORDERABL ES Final Result [facility] [address] [place] [phone] from Last 3 Months or Most Recently Relevant to Health Maintenance Insurance [facility] [employer] F[employer] Care Teams Database Reporting Consultant Relationship Specialty Start Date End Date Kan Tijerina MD [address] [place] [phone] PCP - General Internal Medicine 05/27/23
--- OUTSIDE RECORDS SUMMARY | 2024-08-19 10:45 | XMS_ITS | Encounter Summary ---
Author Organization [employer] Address [address] [place] [address] Care Team Providers Care Regional Safety Manager Name Role Phone Kan Tijerina MD Primary Care Prov ider Reason for Visit * Reason Comments Gynecologic Exam Encounter Details Date Type Department Care Team ([facility] st Contact Info) Description 08/19/2024 9:00 AM EDT Procedure Visit [facility] [address] [place] [address] Eliana Baum CN [address] [place] [address] Social History Tobacco Use Types Packs/Day Years [...] PM EST documented as of this encounter Last Filed Vital Signs Vital Sign Reading Time Taken Comments Blood Pressure 156/99 08/19/2024 9:11 AM EDT Pulse - - Temperature 36.2 ??C (97.2 ??F) 08/19/2024 9:11 AM ED T Respiratory Rate 16 08/19/2024 9:11 AM EDT Oxygen Saturation - - Inhaled Oxygen Concentration - - Weight 61.7 kg (136 lb) 08/19/2024 9:11 AM EDT Height 157.5 cm (5' 2 ) 08/19/2024 9:11 AM EDT Body Mass Index 24.87 08/19/2024 9:11 AM EDT documented in this encounter Plan of Treatment Upcoming Encounters Date Type Department Care Team (Late st Contact Info) Description 09/08/2024 2:30 PM EDT Telemedicine [facility] [address] [place] [address] Kan Tijerina MD [address] [place] [address] documented as of this encounter Visit Diagnoses Not on filedocumented in this encounter Additional Health Concerns Assessment Noted Time PHQ-9 Depression Total Score: 3 08/05/19 25 2:01 PM EDT documented as of this encounter Care Teams Regional Safety Manager Relationship Specialty Start Date End Date Kan Tijerina MD [address] [place] [phone] PCP - General Internal Medicine 05/27/23 documented as of this encounter
--- OUTSIDE RECORDS SUMMARY | 2024-08-19 10:45 | XMS_ITS | Encounter Summary ---
Author Organization [email or web address] Address [address] [facility] [address] [place] [address] Care Team Providers Care Director Diversity Name Role Phone Kan Tijerina MD Primary Care Prov ider Reason for Referral * Imaging (Urgent) - Closed Specialty Diagnoses / Procedures Referred By Contac t Referred To Contact Radiology Diagnoses Fibroid Procedures Us Pelvis complete Eliana Goyal CNM [address] [place] [address] Phone: tel: fax: [address] Phone: tel: fax: Referral ID Status Reason Start Date Expiration Date Visits Re quested Visits Authorized [id number] Closed 05/05/2024 05/05/2025 1 1 * Imaging (Urgent) - Closed Specialty Diagnoses / Procedures Referred By Contac t Referred To Contact Radiology Diagnoses Fibroid Procedures US Pelvis Transvaginal Eliana Goyal CNM [address] [place] [address] Phone: tel: fax: [address] Phone: tel: fax: Referral ID Status Reason Start Date Expiration Date Visits Re quested Visits Authorized [id number] Closed 05/05/2024 05/05/2025 1 1 Encounter Details Date Type Department Care Team (Late st Contact Info) Description 05/05/2024 Orders Only [facility] MEDICINE [address] [place] [address] Eliana Goyal CNM [address], [place] [id number] Fibroid (Primary Dx) Social History Tobacco Use Types Packs/Day Years [...] Upcoming Encounters Date Type Department Care Team ([facility] st Contact Info) Description 09/08/2024 2:30 PM EDT Telemedicine [facility] MED & PEDS [address] [facility] [place] [address] Kan Tijerina MD [address] [place] [address] Scheduled Orders Name Type Priority Associated Diagnoses Orde r Schedule Us Pelvis complete Imaging Urgent Fibroid Expected: 05/05/2024, Expires: 05/05/2025 documented as of this encounter Procedures Procedure Name Priority Date/Time Associated Diagnosis Comments US PELVIS TRANSVAGINAL Urgent 05/13/2024 5:21 PM EST Fibroid documented in this encounter Results * US Pelvis Transvaginal (05/13/2024 5:21 PM EST) Anatomical Region Laterality Modality Pelvis Ultrasound 05/13/2024 5:21 PM EST Narrative 05/13/2024 5:23 PM EST ? [facility] ?[address] ?[place] [address] ? Ultrasound Report ? Signed ? Patient: Shailesh Alicia Mathew ?MR#: ?? [id number] ? : 1975 ?Acct:[id number] ? Age/Sex: 48 / F ?ADM Date: 05/13/24 ? Loc: HO.US ? Attending Dr: Eliana Goyal CNM ? Ordering Physician: ELIANA GOYAL CNChristina ?? Date of Service: 05/13/24 ?? Procedure(s): US pelvic and transvaginal ?? Accession Number(s): [id number] ? cc: Kan Tijerina MD; ELIANA GOYAL CNM ? CLINICAL HISTORY: fibroids, 6 month f u ? US pelvis transabdominal and transvaginal with Doppler ? Comparison: None ? Findings: ?? Transabdominal scanning performed for overall anatomy. Transvaginal ?? scanning performed for additional detail. ? Uterus is 13 cm length. ?? Multiple uterine fibroids: 4.8 x 4.5 x 4.4 cm on the right, 3.2 x 2.1 x ?? 2.7 cm on the right and 2.7 x 2.5 x 2.5 cm posteriorly ?? No endometrial lesion, 8.0 mm thickness. ? Right ovary 3.4 x 1.5 x 2 cm. ?? Left ovary is not seen. ?? Normal color Doppler with arterial/venous spectral tracing of right ovary. ? No free fluid. ? IMPRESSION: ?? Multiple uterine fibroids. ? This document has been electronically signed by: Amaya Hubbard MD on ?? 05/13/2024 17:21:49 ? Dictated By: ?Amaya Hubbard MD ? Signed By: ?<Electronically signed by Amaya Hubbard MD in OV> ? 05/13/24 1722 ? DD/ 1721 ? TD/TT: 05/13/24 1721 ? Fish Roe Technician: ? Procedure Note Donotjenaeinterpreter, Image - 05/13/2024 [place] [id number] Ultrasound Report Signed Patient: Alicia Workman DMR#: [id number] : 1975Acct:[id number] Age/Sex: 48 / FADM Date: 05/13/24 Loc: HO.US Attending Dr: Eliana Goyal CNM Ordering Physician: ELIANA GOYAL CNM Date of Service: 05/13/24 Procedure(s): US pelvic and transvaginal Accession Number(s): [id number] cc: Kan Tijerina MD; ELIANA GOYAL CNM CLINICAL HISTORY: fibroids, 6 month f u US pelvis transabdominal and transvaginal with Doppler Comparison: None Findings: Transabdominal scanning performed for overall anatomy. Transvaginal scanning performed for additional detail. Uterus is 13 cm length. Multiple uterine fibroids: 4.8 x 4.5 x 4.4 cm on the right, 3.2 x 2.1 x 2.7 cm on the right and 2.7 x 2.5 x 2.5 cm posteriorly No endometrial lesion, 8.0 mm thickness. Right ovary 3.4 x 1.5 x 2 cm. Left ovary is not seen. Normal color Doppler with arterial/venous spectral tracing of right ovary. No free fluid. IMPRESSION: Multiple uterine fibroids. This document has been electronically signed by: Amaya Hubbard MD on 05/13/2024 17:21:49 Dictated By: Amaya Hubbard MD Signed By: <Electronically signed by Amaya Hubbard MD in OV> 05/13/24 1722 DD/ 1721 TD/TT: 05/13/24 172 Fish Roe Technician: us Eliana Goyal [facility] IM US PROCEDURES Edited Result - Final documented in this encounter Visit Diagnoses Diagnosis Fibroid- Primary Leiomyoma of uterus, unspecified documented in this encounter Additional Health Concerns Assessment Noted Time PHQ-9 Depression Total Score: 0 05/27/19 24 9:56 AM EST documented as of this encounter Care Teams Director Diversity Relationship Specialty Start Date End Date Kan Tijerina MD [address] [place] [phone] PCP - General Internal Medicine 05/27/23 documented as of this encounter
--- OUTSIDE RECORDS SUMMARY | 2024-08-19 10:45 | XMS_ITS | Encounter Summary ---
Author Organization [employer] Address [address] [facility] [address] [place] [address] Care Team Providers Care Slab Grinder Name Role Phone Kan Tijerina MD Primary Care Prov ider Reason for Visit * Reason Onset Date Comments CHART PREP 08/18/2024 Encounter Details Date Type Department Care Team ([facility] st Contact Info) Description 08/18/2024 Telephone [facility] MEDICINE [address] [place] [address] Eliana Baum, [facility] [address] [place] [address] CHART PREP Social History Tobacco Use Types Packs/Day Years [...] encounter Miscellaneous Notes * Telephone Encounter - Eleonora Ray [place] - 08/18/2024 4:59 PM EDT Chart Prep Labs: not done from 08/04/24 T/C for lab reminder Images: done Pelvis/Transva 05/13/24 Referrals: not applicable Vaccines due: Hep B Screenings: LMP Overdue care gaps: SUSIE-7 and Disability screen documented in this encounter Plan of Treatment Upcoming Encounters Date Type Department Care Team (Late st Contact Info) Description 09/08/2024 2:30 PM EDT Telemedicine [facility] MED & PEDS [address] [place] [address] Kan Tijerina MD [address] [place] [address] documented as of this encounter Visit Diagnoses Not on filedocumented in this encounter Additional Health Concerns Assessment Noted Time PHQ-9 Depression Total Score: 3 08/05/19 2:01 PM EDT documented as of this encounter Care Teams Slab Grinder Relationship Specialty Start Date End Date Kan Tijerina MD [address] [place] [address] PCP - General Internal Medicine 05/27/23 documented as of this encounter
[2024-08-19 10:59] LABS: MANUAL DIFF FLAG NO
[2024-08-19 11:11] LABS: Basophils Absolute Auto 0.1 X10*3/uL (0.0-0.2); Eosinophils Absolute Auto 0.1 X10*3/uL (0.0-0.4); Eosinophils Percent Auto 1.6 % (0-4); Hematocrit 38.6 % (37.0-47.0); Hemoglobin 12.8 g/dl (12.0-16.0); Imm Gran Abs Auto 0.01 X10*3/uL (0.00-0.03); Imm Gran Pct Auto 0.2 % (0.0-0.4); Lymphocytes Absolute Auto 1.6 X10*3/uL (1.2-4.9); Lymphocytes Percent Auto 31.2 % (20-40); Mean Corpuscular HGB Conc 33.2 g/dl (31.0-35.0); Mean Corpuscular Volume 90.6 fL (80.0-98.0); Mean Platelet Volume 10.6 fL (9.4-12.3); Monocytes Absolute Auto 0.4 X10*3/uL (0.1-1.2); Monocytes Percent Auto 8.3 % (2-11); Neutrophils Absolute Auto 2.9 x10*3/uL (2.0-8.3); Neutrophils Percent Auto 57.7 % (45-73); Platelet Count 229 X10*3/uL (160-400); Red Blood Count 4.26 X10*6/uL (4.20-5.50); Red Cell Distribution Width 12.2 % (11.0-16.0)
[2024-08-19 11:55] LABS: Alanine Aminotransferase 16 U/L (0-31); Albumin Level 3.9 g/dL (3.5-5.0); Alkaline Phosphatase 56 U/L (39-117); Anion Gap 8 (12-20); Aspartate Amino Transferase 19 U/L (5-31); Bilirubin Total 0.6 mg/dL (0.0-1.0); Blood Urea Nitrogen 9 mg/dL (9-16); Calcium 8.7 mg/dL (8.4-10.2); Carbon Dioxide 28 mmol/L (22-29); Chloride 107 mmol/L (96-108); Cholesterol 145 mg/dL (<200); Estimated Glomerular Filt Rate > 60; Glucose Random 91 mg/dL (60-115); HDL Cholesterol 40 mg/dL (>40); LDL Cholesterol Calculated 95 mg/dL (<100); Potassium 3.9 mmol/L (3.3-5.1); Sodium 139 mmol/L (135-145); Total Protein 6.9 g/dL (6.5-8.0); Triglycerides 53 mg/dL (<150)
[2024-08-19 12:08] LABS: TSH reflex Free T4 2.79 uIU/mL (0.32-4.0)
[2024-08-19 12:14] LABS: HIV AB/AG Nonreactive (Nonreactive); HIV Num 1 0.05 S/CO (0.00-0.99); ~HepC Num1 0.23 S/CO (0.00-0.79); ~Hepatitis C Antibody Nonreactive (Nonreactive)
== END 2024-08-19 09:50 | disposition home or self-care (01) ==
LOC: HO.HHCL 09:49
PROVIDERS: Visit Provider Internal Medicine
DX: E03.9 Hypothyroidism, unspecified (principal)
CPT/HCPCS: 36415; 80053; 80061; 84443; 85025; 86803; 87389

== ENCOUNTER 2024-10-14 10:37 | Outpatient (REF) | payer MEDICAID, OTHER, SELFPAY ==
--- NOTE | ~2024-10-14 | US_ITS ---
EXAMINATION: US PELVIS TRANSABDOMINAL AND TRANSVAGINAL HISTORY: fibroids, schedule 10/2024 COMPARISON: Comparison is made with the prior examination dated 05/13/2024. TECHNIQUE: Transabdominal and endovaginal real-time 2D jimenez-scale ultrasound was performed. FINDINGS: Uterus: The uterus is enlarged, measuring 11.9 x 8.5 x 7.8 cm. Myometrium has markedly heterogeneous echotexture. Multiple fibroids are identified. The largest fibroids include a right-sided uterine body fibroid measuring 7.1 x 6.2 x 6.9 cm (previously 4.8 x 4.5 x 4.4 cm), and an anterior fibroid measuring 3.3 x 3.4 x 4.0 cm (previously 3.2 x 2.1 x 2.7 cm). Endometrium: The endometrial stripe measures 10 mm in thickness. Right ovary: The right ovary measures 2.0 x 1.6 x 2.4 cm. The right ovary is normal in size and echotexture. Left ovary: The left ovary measures 2.3 x 1.9 x 2.5 cm. The left ovary is normal in size and echotexture. Pelvic fluid: none. US/US pelvic and transvaginal IMPRESSION: Fibroid uterus as described. Both of the dominant fibroids are larger than on the prior study Electronically signed by: Jeferson Tariq MD 10/14/2024 12:19 PM EDT
--- NOTE | ~2024-10-14 | MM_ITS ---
EXAMINATION: MM SCREENING DIGITAL BREAST TOMOSYNTHESIS, BILATERAL CLINICAL INFORMATION: Screening. Asymptomatic. COMPARISON: Mammography: Comparison is made with available priors TECHNIQUE: Digital breast mammography with tomosynthesis is performed in both the craniocaudal and mediolateral oblique views along with computer-aided detection (CAD). FINDINGS: The breasts are heterogeneously dense, which may obscure small masses (ACR BI-RADS breast composition Category c). There are no significant masses, abnormal calcifications, or other abnormalities. MM/MM tomosynthesis screening BI IMPRESSION: No mammographic evidence of malignancy. ASSESSMENT: BI-RADS BI-RADS 1 - Negative RECOMMENDATION: Routine annual mammography screening. 1 year F/U This examination should not preclude the clinical evaluation of a suspicious palpable abnormality. This patient's information was entered into a reminder system with a target due date for their next mammogram. Electronically signed by: Maranda Oneal DO 10/25/2024 08:54 PM EDT
--- OUTSIDE RECORDS SUMMARY | 2024-10-14 11:18 | XMS_ITS | Clinical Summary ---
Author Organization [employer] Address [address] [place] [address] Care Team Providers Care Triage Technician Name Role Phone Kan Tijerina MD Primary [...] Active Problems Problem Noted Date Diagnosed Date Encounter for physical examination 09/02/2024 Assessment & Plan (09/02/2024 7:29 PM EDT): Physical examination was unremarkable, no heart murmurs, no thyroid nodules, clear to auscultation bilaterally, blood pressure was slightly above target, will follow up in 1 months with a bp log to determine if treatment is needed Intramural, submucous, and subserous leiomyoma o f uterus 01/28/2024 Assessment & Plan (01/28/2024 10:44 AM EDT): 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, refers having mild pain and pressure, no menorrhagia reported Primary hypertension 05/28/2023 Assessment & Plan (09/08/2024 2:54 PM EDT): Readings as follow: 123/100- 130/90- 132/93- 132/92- 145/99 (repeated 5 minutes later 124/76) Patient most likely with anxiety and WCS, would recommend to keep bp log at home, call back if numbers are higher than 140/90, keep low sodium diet and exercise as tolerated Assessment & Plan (10/30/2023 12:13 PM EDT): [...] month Acquired hypothyroidism 04/24/2023 Assessment & Plan (09/08/2024 2:55 PM EDT): Tsh results were stable, no need to start medical therapy Assessment & Plan (09/02/2024 7:27 PM EDT): New labs will be ordered for guidance of therapy Assessment & Plan (10/30/2023 12:13 PM EDT): [...] Encounters Date Type Department Care Team Description 09/08/2024 2:30 PM EDT Telemedicine [facility] [address] [place], [place] [phone] Kan Tijerina MD Primary hypertension (Primary Dx); Acquired hypothyroidism 09/08/2024 Travel 08/19/2024 9:00 AM EDT Procedure Visit [facility] [address] [place] [phone] Eliana Baum CNM Visit for pelvic exam (Primary Dx); Fibroids; Breast cancer screening by mammogram 08/19/2024 Travel 08/18/2024 Telephone [facility] [address] [place] [address] Eliana Baum CNM CHART PREP 08/04/2024 1:45 PM EDT Office Visit [facility] [address] [place] [address] Kan Tijerina MD Acquired hypothyroidism (Primary Dx); Elevated BP without diagnosis of hypertension; Encounter for physical examination; Screening for colon cancer 08/04/2024 Travel 07/24/2024 Patient Outreach [facility] [address] [place] [address] Ketty Deshpnade Pre-visit Planning (SDOH screening positive and Tobacco screening negative) from Last 3 Months Immunizations Immunization Administration Dates Next Due Hep B, adult 07/24/2023 Influenza injectable quadrivalent preservative f ree 07/24/2023 Tdap 07/24/2023 Family History Medical History Relation Name Comments Alzheimer's disease Father Dementia Mother Hypertension Mother Stomach cancer Mother's Sister Breast cancer Neg Hx Colon cancer Neg Hx Ovarian cancer Neg Hx Relation Name Status Comments Father Mother Mother's [...] your housing situation today? I have maxwell sing 07/24/[address] you li [...] Q2 Not on file 07/24/2024 Comments No Intention Date Recorded No desire to become (finding) 0 08/19/2024 Sex and Gender Information Value Date Recorded Sex Assigned at Female 04/24/2023 5:19 PM EST Legal Sex Female 10:47 AM EST Gender Identity Female 04/24/2023 5:19 PM EST Sexual Orientation Straight 04/24/2023 5: 19 PM EST Last Filed Vital Signs Vital Sign Reading Time Taken Comments Blood Pressure 124/76 09/08/2024 2:40 PM EDT Pulse 84 08/04/2024 2:00 PM EDT Temperature 36.2 C (97.2 F) 08/19/2024 9:11 AM EDT Respiratory Rate 16 08/19/2024 9:11 AM EDT Oxygen Saturation 98% 08/04/2024 2:00 PM EDT Inhaled Oxygen Concentration - - Weight 61.7 kg (136 lb) 08/19/2024 9:11 AM EDT Height 157.5 cm (5' 2 ) 08/19/2024 9:11 AM EDT Body Mass Index 24.87 08/19/2024 9:11 AM EDT Plan of Treatment Upcoming Encounters Date Type Department Care Team (Late st Contact Info) Description 12/09/2024 3:30 PM EDT Telemedicine [facility] [address], [place] [phone] Kan Tijerina MD [address] [place] [address] Health Maintenance Due Date Last Done Comments CT Colonography 1975 Colonoscopy 1975 FIT 1975 FOBT 1975 Sigmoidoscopy 1975 Hepatitis B Vaccines (2 of 3 - 19+ 3-dose series) 08/21/2023 07/24/2023 COVID-19 Vaccine (1 - 2023-2 5 season) 2023 Influenza Vaccine (Season Ended) 2024 07/24/2023 Mammogram 05/20/2025 05/20/2023 SDOH Screening 07/24/2025 07/24/2024 Alcohol/Substance Use Screening 08/04/2025 08/04/2024 Depression Screening 08/04/2025 08/04/2024, 08/04/2024 Disability Screening 08/19/2025 08/19/2024 Family Planning (PISQ) 08/19/2025 08/19/2024 Tobacco Screening 08/19/2025 08/19/2024 Zoster Vaccines (1 of 2) 2026 Colorectal Cancer Screening 10/06/2027 FIT DNA/Cologuard 10/06/2027 10/05/2024 Cervical Cancer Screening 08/19/2028 HPV/Cotest 08/19/2028 08/21/2023 Pap Smear 08/19/2028 08/20/2023, 08/20/2023 Lipid Panel 08/19/2029 08/19/2024, 04/25/2023 DTaP/Tdap/Td Vaccines (3 - T d or Tdap) 01/17/2034 01/18/2024, 07/24/2023 RSV Patients and Patients Aged 60 years or older (1 - 1-dose 75+ series) 10/28/2051 HIV Screening Completed 08/19/2024 Hepatitis C Screening Completed 08/19/2024 HIB Vaccines Aged Out No longer eligi [...] patient's age to complete this topic Meningococcal B Vaccine Aged Out No l onger eligible based on patient's age to complete this topic Meningococcal Vaccine Aged Out No kaliey [place] eligible based on patient's age to complete this topic Pneumococcal Vaccine: Pediatrics (0 to 5 Years) and At-Risk Patients (6 to 49) Years Aged Out No longer eligible b ased on patient's age to complete this topic RSV under 20 months Aged Out No longe r eligible based on patient's age to complete this topic Rotavirus Vaccines Aged Out No longer eligible based on patient's age to complete this topic Procedures Procedure Name Priority Date/Time Associated Diagnosis Comments LAB COLOGUARD COLON CANCER SCREEN Routine 10/05/2024 7:03 AM EDT Screening for colon cancer LIPID PANEL, STANDARD Routine 08/19/2024 9:51 AM EDT Acquired hypothyroidism TSH W/REFLEX TO FT4 Routine 08/19/2024 9 :51 AM EDT Acquired hypothyroidism COMPREHENSIVE METABOLIC PANEL Routine 08/19/2024 9:51 AM EDT Acquired hypothyroidism CBC WITH AUTO DIFFERENTIAL Routine 08/19/2024 9:51 AM EDT Acquired hypothyroidism HEPATITIS C AB W/REFL TO HCV RNA, QN, PCR Routine 08/19/2024 9:51 AM EDT Acquired hypothyroidism HIV 1/2 ANTIGEN/ANTIBODY, FOURTH GENERATION W/RFL Routine 08/19/2024 9:51 AM EDT Acquired hypothyroidism HPV MRNA E6/E7 REFLEX TO HPV 16, 18/45 Routine 08/21/2023 8:20 AM EDT IMAGE-GUIDED PAP W/AGE BASED SCR,W/CT/NG/TRICH Routine 08/20/2023 9:33 AM EDT Cervical cancer screening Encntr screen for infections w sexl mode of transmiss BI MAMMOGRAM SCREENING TOMOSYNTHESIS BILATERAL Routine 05/20/2023 4:47 PM EST from Last 3 Months or Most Recently Relevant to Health Maintenance Results * Cologuard?? colon cancer screening (10/05/2024 7:03 AM EDT) Cologuard Result Negative Negative 10/09/19 6:19 AM EDT [facility] (CLIA #:[id number]) Comment: The Cologuard (TM) test was performed on this specimen. NEGATIVE TEST RESULT. A negative Cologuard result indicates a low likelihood that a colorectal cancer (CRC) or advanced adenoma (adenomatous polyps with more advanced pre-malignant features) is present. The chance that a person with a negative Cologuard test has a colorectal cancer is less than 1 in 1500 (negative predictive value >99.9%) or has an advanced adenoma is less than 5.3% (negative predictive value 94.7%). These data are based on a prospective cross-sectional study of 10,000 individuals at average risk for colorectal cancer who were screened with both Cologuard and colonoscopy. (Lacie St al, N Engl J Med 2014;370(14):1286- 1297) The normal value (reference range) for this assay is negative. COLOGUARD RE-SCREENING RECOMMENDATION: Periodic colorectal cancer screening is an important part of preventive healthcare for asymptomatic individuals at average risk for colorectal cancer. Following a negative Cologuard result, the [place] [employer] and U.S. Multi-Society Task Force screening guidelines recommend a Cologuard re-screening interval of 3 years. References: [place] [employer] Guideline for Colorectal Cancer Screening: https://www.cancer.org/cancer/tcojx-nnfhoc-thlpfx/usjgrhzox-rjukjwscc-jwgskyn/ac s-rec ommendations.html.; Max DK, Renetta CR, Alla ManzanoK, Colorectal Cancer Screening: Recommendations for Physicians and Patients from the U.S. Multi-Society Task Force on Colorectal Cancer Screening , Am J Gastroenterology 2017; 112:9692-3544. TEST DESCRIPTION: Composite algorithmic analysis of stool DNA-biomarkers with hemoglobin immunoassay. Quantitative values of individual biomarkers are not reportable and are not associated with individual biomarker result reference ranges. Cologuard is intended for colorectal cancer screening of adults of either sex, 45 years or older, who are at average-risk for colorectal cancer (CRC). Cologuard has been approved for use by the U.S. FDA. The performance of Cologuard was established in a cross sectional study of average-risk adults aged 50-84. Cologuard performance in patients ages 45 to 49 years was estimated by sub-group analysis of near-age groups. Colonoscopies performed for a positive result may find as the most clinically significant lesion: colorectal cancer [4.0%], advanced adenoma (including sessile serrated polyps greater than or equal to 1cm diameter) [20%] or non- advanced adenoma [31%]; or no colorectal neoplasia [45%]. These estimates are derived from a prospective cross-sectional screening study of 10,000 individuals at average risk for colorectal cancer who were screened with both Cologuard and colonoscopy. (Lacie St al, N Engl J Med 2014;370(14):7373-7052.) Cologuard may produce a false negative or false positive result (no colorectal cancer or precancerous polyp present at colonoscopy follow up). A negative Cologuard test result does not guarantee the absence of CRC or advanced adenoma (pre-cancer). The current Cologuard screening interval is every 3 years. ([place] [employer] Society and U.S. Multi-Society Task Force). Cologuard performance data in a 10,000 patient pivotal study using colonoscopy as the reference method can be accessed at the following location: www.Hermes IQ.Aveso/results. Additional description of the Cologuard test process, warnings and precautions can be found at www.Digitilitird.Aveso. Stool specimen (specimen) 10/05/2024 7:03 AM EDT 10/06/2024 12:58 PM EDT Kan Mathew MD LAB MOLECULAR DIAG NOSTICS ORDERABLES Final Result [facility] [facility] (CLIA #:[id number]) [address] [place] [address], * TSH W/Reflex to FT4 (08/19/2024 9:51 AM EDT) TSH reflex Free T4 2.79 0.32 - 4.0 uIU/mL [facility] Blood Venous blood specimen / Unknown 08/19/2024 9:51 AM EDT 08/19/2024 10:55 AM EDT us Kan Mathew MD LAB BLOOD ORDERABL ES Final Result [facility] [address] [place] [address] [phone] * CBC auto differential (08/19/2024 9:51 AM EDT) White Blood Count 5.0 4.8 - 10.8 X10*3/uL [facility] Red Blood Count 4.26 4.20 - 5.50 X10*6/uL [facility] Hemoglobin 12.8 12.0 - 16.0 g/dl [facility] Hematocrit 38.6 37.0 - 47.0 % [facility] Mean Corpuscular Volume 90.6 80.0 - 98.0 fL [facility] Mean Corpuscular Hemoglobin 30.0 27.0 - 33.0 pg [facility] Mean Corpuscular HGB Conc 33.2 31.0 - 35.0 g/dl [facility] Red Cell Distribution Width 12.2 11.0 - 16.0 % [facility] Platelet Count 229 160 - 400 X10*3/uL [facility] Mean Platelet Volume 10.6 9.4 - 12.3 fL [facility] Neutrophils Percent Auto 57.7 45 - 73 % [facility] Imm Gran Pct Auto 0.2 0.0 - 0.4 % [facility] Lymphocytes Percent Auto 31.2 20 - 40 % [facility] Monocytes Percent Auto 8.3 2 - 11 % [facility] Eosinophils Percent Auto 1.6 0 - 4 % [facility] Basophils Percent Auto 1.0 0 - 2 % [facility] NRBC Pct Auto 0.0 0.0 - 0.2 /100WBC [facility] Neutrophils Absolute Auto 2.9 2.0 - 8.3 x10*3/uL [facility] Imm Gran Abs Auto 0.01 0.00 - 0.03 X10*3/uL [facility] Lymphocytes Absolute Auto 1.6 1.2 - 4.9 X10*3/uL [facility] Monocytes Absolute Auto 0.4 0.1 - 1.2 X10*3/uL [facility] Eosinophils Absolute Auto 0.1 0.0 - 0.4 X10*3/uL [facility] Basophils Absolute Auto 0.1 0.0 - 0.2 X10*3/uL [facility] NRBC Abs Auto 0.000 0.0 - 0.012 X10*3/uL [facility] Blood Venous blood specimen / Unknown 08/19/2024 9:51 AM EDT 08/19/2024 10:57 AM EDT Kan Mathew MD LAB BLOOD ORDERABL ES Final Result Performing Organization Address [facility]/ZIP Co de Phone Number [facility] [address] [place] [phone] * Hepatitis C Antibody with Reflex to HCV, RNA, Quantitative, Real-Time PCR (08/19/2024 9:51 AM EDT) Hepatitis C Antibody Nonreactive Nonreactive [facility] Comment:Antibodies to HCV no t detected; does not exclude early acuteHCV infection. Blood Venous blood specimen / Unknown 08/19/2024 9:51 AM EDT 08/19/2024 10:59 AM EDT us Kan Mathew MD LAB BLOOD ORDERABL ES Final Result Performing Organization Address [facility]/ZIP Co de Phone Number [facility] [address] [place] [phone] * HIV-1/2 Antigen and Antibodies, Fourth Generation, with Reflexes (08/19/2024 9:51 AM EDT) HIV AB/AG Nonreactive Nonreactive [facility] Comment:HIV-1 p24 Ag and/or HIV-1/HIV-2 Ab not detected.A test result that is nonreactive does not exclude thepossibility of exposure to or infection with HIV-1 and/orHIV-2. Nonreactive results in this assay for individualswith prior exposure to HIV-1 and/or HIV-2 may be due toantigen and antibody levels that are below the limit ofdetection of this assay.The RailRunner[employer]Ponominalu.ru HIV Ag/Ab Combo assay result andsupplemental assay results should be interpreted inconjunction with the patient's clinical presentation,history and other laboratory results. If the results areinconsistent with clinical evidence, additional testing issuggested to confirm the result. Blood Venous blood specimen / Unknown 08/19/2024 9:51 AM EDT 08/19/2024 10:59 AM EDT us Kan Mathew MD LAB BLOOD ORDERABL ES Final Result [facility] [address] [place] [phone] * (ABNORMAL) Lipid Panel, Standard (08/19/2024 9:51 AM EDT) Triglycerides 53 <150 mg/dL [facility] Comment:Desirable Triglyceri de: less than 150 mg/dLBorderline High Triglyceride 150-199 mg/dLHigh Triglyceride: 200-499 mg/dLVery High Triglyceride: greater than or equal to 5OO mg/dL Cholesterol 145 <200 mg/dL [facility] Comment:Desirable Cholestero l: less than 200 mg/dLBorderline High Cholesterol: 200-239 mg/dLHigh Cholesterol: greater than 239 mg/dL LDL Cholesterol Calculated 95 <100 mg/dL [facility] Comment:Desirable LDL: less than 100 mg/dLNear Optimal/Above Optimal LDL: 110- 129 mg/dLBorderline High LDL: 130-159 mg/dLHigh LDL: 160-189 mg/dLVery High LDL: greater than or equal to 190 mg/dL HDL Cholesterol 40(L) >40 mg/dL [facility] Comment:Desirable HDL: great er than 40 mg/dL Note: This HDL assay may give artificially low results in patients with liver disease. Blood Venous blood specimen / Unknown 08/19/2024 9:51 AM EDT 08/19/2024 10:55 AM EDT us Kan Mathew MD LAB BLOOD ORDERABL ES Final Result [facility] [address] [place] [phone] * (ABNORMAL) Comprehensive Metabolic Panel (08/19/2024 9:51 AM EDT) Sodium 139 135 - 145 mmol/L [facility] Potassium 3.9 3.3 - 5.1 mmol/L [facility] Chloride 107 96 - 108 mmol/L [facility] Carbon Dioxide 28 22 - 29 mmol/L [facility] Anion Gap 8(L) 12 - 20 [facility] Urea Nitrogen (BUN) 9 9 - 16 mg/dL [facility] Creatinine, Serum 0.59 0.5 - 1.4 mg/dL [facility] Estimated Glomerular Filt Rate >60 [facility] Comment:Chronic Kidney Disea se: Estimated GFR < 60 mL/min/1.46k4Muuarf Kidney Disease: Estimated GFR < 15 mL/min/1.73m2 Glucose 91 60 - 115 mg/dL [facility] Calcium 8.7 8.4 - 10.2 mg/dL [facility] Bilirubin, Total 0.6 0.0 - 1.0 mg/dL [facility] Aspartate Amino Transferase 19 5 - 31 U/L [facility] Alanine Aminotransferase 16 0 - 31 U/L [facility] Total Protein 6.9 6.5 - 8.0 g/dL [facility] Albumin Level 3.9 3.5 - 5.0 g/dL [facility] Alkaline Phosphatase 56 39 - 117 U/L [facility] Blood Venous blood specimen / Unknown 08/19/2024 9:51 AM EDT 08/19/2024 10:55 AM EDT us Kan Mathew MD LAB BLOOD ORDERABL ES Final Result Performing Organization Address City/[facility]/ZIP Co de Phone Number [facility] [address] [place] [phone] * HPV mRNA E6/E7 w/Reflex to HPV Genotypes 16, 18/45 (08/21/2023 8:20 AM EDT) HPV nRNA E6/E7 Not Detected Not Detected [facility] Comment:Methodology: Transcr iption-Mediated AmplificationThis assay detects E6/E7 viral messenger RNA (mRNA) from 14high-risk HPV types (16,18,31,33,35,39,45,51,52,56,58,59,66,68).Cervical sources are required for HPV testing.If a vaginal source from a patient who has had atotal hysterectomy with removal of cervix wassubmitted, please contact the testing laboratoryfor alternative testing options.For additional information, please refer tohttp://education.Overblog/faq/YAI414v5(This link if provided for information/educational purposes only.)THIS TEST WAS PERFORMED AT:[facility] [place] [phone] ARAMBULA MD HPV mRNA E6/E7 [facility] HPV 16 RNA [facility] HPV 18/45 RNA [facility] 08/21/2023 8:20 AM EDT 08/21/2023 8:20 AM EDT us Eliana Baum CNM LAB CYTOLOGY ORDERABLES F inal Result [facility] [address] [place] [phone] * Pap with NG,CT,Trich (08/20/2023 9:33 AM EDT) Trichomonas (NAAT) NOT DETECTED NOT DETECTED [facility] Comment:The analytical perfo rmance characteristics of thisassay have been determined by [employer]. Themodifications have not been cleared or approved bythe FDA. This assay has been validated pursuant to theIA regulations and is used for clinical purposes.For additional information, please refer tohttp://education.Overblog/faq/Trichomonastma(This link is being provided for information/educational purposes only.)THIS TEST WAS PERFORMED AT:[facility] [place] [phone] ARAMBULA MD CTNG Ref Lab NOT DETECTED NOT DETECTED [facility] NG Ref Lab NOT DETECTED NOT DETECTED [facility] Pap Vial Vaginal structure / Unknown 08/20/2023 9:33 AM EDT 08/21/2023 11:25 AM EDT Narrative [facility] - 08/23/2023 12:04 AM EDT Was previous PAP abnormal? NoClinical Information: NoneCollection Date: [id number]: [id number] by: ALEXSANDER Almanza: Vagina us Eliana [place]IN[place]NA LAB CYTOLOGY ORDERABLES F inal Result [facility] [address] [place] [phone] * BI Mammogram Screening Tomosynthesis Bilateral (05/20/2023 4:47 PM EST) Anatomical Region Laterality Modality Breast Bilateral Mammography 05/20/2023 4:47 PM EST Narrative 06/13/2023 9:53 PM EST [facility] [address] [place] [address] Mammography Report Signed Patient: Alicia Workman MR#: [id number] : 1975 Acct:[id number] Age/Sex: 47 / F ADM Date: 05/20/23 Loc: HO.MAMMO Attending Dr: Kan Mathew MD Ordering Physician: Kan Tijerina MD Res ults: 1Negative Date of Service: 05/20/23 Follow Up: 1 Year From Orig inal Mammogram Procedure(s): MM tomosynthesis screening BI Accession Number(s): [id number] cc: Kan Tijerina MD EXAMINATION: MM SCREENING [...] Yomaira Elaine MD in OV> 06/13/232148 DD/ 1647 TD/TT: Parole Agent: Procedure Note Donotuseinterpreter, Image - 06/13/20[facility] [address] [place] [address] Mammography Report Signed Patient: Alicia Workman DMR#: [id number] : 1975Acct:[id number] Age/Sex: 47 / FADM Date: 05/20/23 Loc: THANIA Attending Dr: Kan Mathew MD Ordering Physician: Kan Tijerina ults: 1Negative Date of Service: 05/20/23Follow Up: 1 Year From Orig inal Mammogram Procedure(s): MM tomosynthesis screening BI Accession Number(s): [id number] cc: Kan Tijerina MD EXAMINATION: MM SCREENING [...] signed by Yomaira Elaine MD in OV> 06/13/239 DD/ 1647 TD/TT: Parole Agent: Kan Mathew MD IMG BI PROCEDURES Final Result from Last 3 Months or Most Recently Relevant to Health [place] [address] [facility] HSN FULL Care Teams Triage Technician Relationship Specialty Start Date End Date Kan Tijerina MD [address] [place] [phone] PCP - General Internal Medicine 05/27/23
== END 2024-10-14 10:38 | disposition home or self-care (01) ==
LOC: HO.US 10:37
PROVIDERS: PCP Internal Medicine; Visit Provider Advanced Practice Midwife
DX: Z12.31 Encounter for screening mammogram for malignant neoplasm of breast (principal); D21.9 Benign neoplasm of connective and other soft tissue, unspecified
CPT/HCPCS: 76830; 76856; 77063; 77067

== ENCOUNTER → 2024-10-14 10:39 | Outpatient (BNV) | payer SELFPAY | PROVIDERS: PCP Internal Medicine; Visit Provider Radiology Diagnostic Radiology | DX: Z12.31 Encounter for screening mammogram for malignant neoplasm of breast (principal) | CPT/HCPCS: 77063; 77067 ==